=== PATIENT | female | born 1975 | race Caucasian/White ===

== ENCOUNTER 2019-10-06 18:11 | Emergency (ER) | payer SELFPAY ==
[~2019-10-06] VITALS: Ht 165.1 cm; Wt 47.7 kg
[2019-10-06 19:23] VITALS: BP 133/79
[2019-10-06 19:37] LABS: BILIRUBIN,URINE NEGATIVE (NEG); CLARITY,URINE CLOUDY; COLOR,URINE YELLOW; NITRITE,URINE NEGATIVE (NEG); PROTEIN,URINE NEGATIVE (NEG-TRACE)
--- NOTE | 2019-10-06 19:38 | PHYS DOC ---
Past Medical History Past Medical History: Hypertension Additional Past Medical Histor: traumatic brain injury 1986, (CHANTEL MOYA APRN) Past Surgical History: No Surgical History Additional Past Surgical Histo: brain surgery x2 (CHANTEL MOYA APRN) Smoking Status: Current Every Day Smoker Alcohol Use: None Drug Use: None (CHANTEL MOYA APRN) Attending Signature I have participated in the care of this patient and I have reviewed and agree with all pertinent clinical information above including history, exam, and recommendations. (MELLISA TOBAR MD) Adult General Chief Complaint Chief Complaint: PAIN ON URINATION [facility] HPI Patient is a 43 year old female who presents with dysuria and hematuria this been ongoing since Thursday. The patient denies any other symptoms. Has not take any medicine for this so far Complete ROS were reviewed and found to be within normal limits, except as documented in the HPI (CHANTEL MOYA APRN) Allergies Allergies Allergies Coded Allergies Type Severity Reaction Last Updated Verified No Known Drug Allergies 09/02/14 No (MELLISA TOBAR MD) Physical Exam Physical Exam Constitutional: Well developed, well nourished, no acute distress, non-toxic appearance. [] HENT: Normocephalic, atraumatic, bilateral external ears normal, oropharynx moist, no oral exudates, nose normal. [] Back: No tenderness, no CVA tenderness. [] Neurologic: Alert and oriented X 3, normal motor function, normal sensory function, no focal deficits noted. [] Psychologic: Affect normal, judgement normal, mood normal. [] (CHANTEL MOYA APRN) Current Patient Data Vital Signs Vital Signs Date Time Temp Pulse Resp B/P (MAP) Pulse Ox O2 Delivery O2 Flow Rate FiO2 10/06/19 19:23 98.4 91 18 133/79 (97) 100 Room Air 98.4 (MELLISA TOBAR MD) Lab Values Laboratory Tests Test 10/06/19 19:24 10/06/19 19:25 POC Urine HCG, Qualitative Hcg negative (Negative) Urine Collection Type Unknown Urine Color Yellow Urine Clarity Cloudy Urine pH 7.0 (<5.0-8.0) Urine Specific Mcgrath 1.010 (1.000-1.030) Urine Protein Negative mg/dL (NEG-TRACE) Urine Glucose (UA) Negative mg/dL (NEG) Urine Ketones (Stick) Negative mg/dL (NEG) Urine Blood Large (NEG) Urine Nitrite Negative (NEG) Urine Bilirubin Negative (NEG) Urine Urobilinogen Dipstick 1.0 mg/dL (0.2 mg/dL) Urine Leukocyte Esterase Large (NEG) Urine RBC 6-10 /HPF (0-2) Urine WBC Tntc /HPF (0-4) Urine Squamous Epithelial Cells Few /LPF Urine Bacteria Few /HPF (0-FEW) (MELLISA TOBAR MD) EKG EKG [] (CHANTEL MOYA APRN) Radiology/Procedures Radiology/Procedures [] (CHANTEL MOYA APRN) Course & Med Decision Making Course & Med Decision Making Pertinent Labs and Imaging studies reviewed. (See chart for details) Will obtain a UA. UA shows leukocytes and blood. Will treat will Keflex. (CHANTEL MOYA APRN) Dragon Disclaimer Dragon Disclaimer This electronic medical record was generated, in whole or in part, using a voice recognition dictation system. (CHANTEL MOYA APRN) Departure Departure Impression: Primary Impression: Urinary tract infection Disposition: HOME, SELF-CARE Condition: STABLE Referrals: JACKY JUDD (PCP) Patient Instructions: Urinary Tract Infection Additional Instructions: Thank you for visiting [facility]. We appreciate you trusting us with your care. If any additional problems come up don't hesitate to return to visit us. Please follow up with your primary care provider so they can plan additional care if needed and know about the problem that you had. If symptoms worsen come back to the Emergency Department. Any concerning symptoms that start such as chest pain, shortness of air, weakness or numbness on one side of the body, running high fevers or any other concerning symptoms return to the ER. You have been prescribed an antibiotic today to help fight your infection. Please take all of the antibiotic as directed. If after 48 hours the infection is not improving, please return for more care. If the infection worsens, return to ER for additional care. Scripts Cephalexin (KEFLEX) 500 Mg Capsule 1 CAP PO BID for 7 Days, #14 CAP 0 Refills Prov: CHANTEL MOYA APRN 10/06/19 Problem Qualifiers Primary Impression: Urinary tract infection Urinary tract infection type: acute cystitis Hematuria presence: with hematuria Qualified Codes: N30.01 - Acute cystitis with hematuria CHANTEL MOYA APRN Oct 06, 2019 19:38 MELLISA TOBAR MD Oct 07, 2019 03:04
[2019-10-06 19:47] LABS: BACTERIA,URINE FEW /HPF (0-FEW); SQUAMOUS EPITHELIAL CELL,UR FEW /LPF; WBC,URINE TNTC /HPF (0-4)
[2019-10-06] MEDS ORDERED: CEPH-264 PO (20:15)
== END 2019-10-06 20:35 | disposition home or self-care (01) ==
LOC: ER 18:11
DX: N30.01 Acute cystitis with hematuria (principal); R30.0 Dysuria; I10 Essential (primary) hypertension; F17.200 Nicotine dependence, unspecified, uncomplicated; Z98.890 Other specified postprocedural states; Z87.820 Personal history of traumatic brain injury
CPT/HCPCS: 81001; 81025; 87086; 99283